=== PATIENT | male | born 1935 | race Caucasian/White ===

== ENCOUNTER 2019-01-20 20:57 | Observation (INO) | payer OTHER ==
[~2019-01-20] VITALS: Ht 172.7 cm; Wt 60.7 kg
[2019-01-21] VITALS (9 sets, daily range): BP systolic 73–175; BP diastolic 68–74; PULSE 72–91; RESP 16–19; Ht 172.7 cm; Wt 60.7 kg
[2019-01-21] MEDS ORDERED: LOVA10TA63 PO (01:49)
[2019-01-21] MEDS ORDERED: SERT-165 PO (01:49)
[2019-01-21] MEDS ORDERED: METO-448 PO (01:49)
[2019-01-21] MEDS ORDERED: NITR0.4T32 SL (01:49)
[2019-01-21] MEDS ORDERED: FAMO20TA18 PO (01:49)
[2019-01-21] MEDS ORDERED: BENZ-6 PO (01:49)
[2019-01-21] MEDS ORDERED: LACT1CAP57 PO (01:49)
[2019-01-21] MEDS ORDERED: ASPI-817 PO (01:49)
[2019-01-21] MEDS ORDERED: FINA5TAB4 PO (01:49)
[2019-01-21] MEDS ORDERED: ALPR0.254 PO (01:49)
[2019-01-21] MEDS: DEXTROSE 5%-0.45% NACL 1,000 ML IV SCH ×2 (02:58→17:25)
[2019-01-21] MEDS ORDERED: ALPRAZOLAM 0.25 MG TAB PO PRN (04:30)
[2019-01-21] MEDS ORDERED: NITROGLYCERIN (SL) 0.4 MG TAB SL PRN ×2 (04:30→04:40)
[2019-01-21] MEDS: PIPER-TAZO 3.375 GM IV (PMX) 100 ML IVPB SCH ×3 (06:12→21:14)
[2019-01-21] MEDS ORDERED: POTASSIUM CHLORIDE (SR) 20 MEQ TAB PO ONE (07:30)
--- NOTE | 2019-01-21 10:25 | HP ---
DATE OF ADMISSION: 01/21/2019 CHIEF COMPLAINT: Persistent cough and generalized weakness. HISTORY OF PRESENT ILLNESS: An 83-year-old male recently discharged from [facility] acute non-STEMI and community-acquired pneumonia. He transferred from [facility] Room after he presented with complaint of persistent cough and generalized weakness. The patient reports that he has been having a dry cough. He denies any fevers or chills. No chest pain. No hem optysis. Initial evaluation in the emergency room included a CAT scan of the chest with pulmonary angiogram. There was no evidence of pulmonary embolus. There was right upper lobe infiltrate suggestive of aspi ration. PAST MEDICAL HISTORY: 1. Coronary artery disease. 2. Recent non-STEMI. 3. Hypertension. 4. Hyperlipidemia. 5. Recent community-acquired pneumonia. 6. Benign prostatic hyperplasia. 7. Chronic depression. MEDICATIONS PRIOR TO ADMISSION: 1. Lovastatin 10 mg daily. 2. Metoprolol 25 mg b.i.d. 3. Nitroglycerin sublingual. 4. Xanax. 5. Aspirin 81 mg daily. 6. Sertraline 100 mg daily. 7. Benzonatate or Tessalon Perles 100 mg t.i.d. 8. Finasteride 5 mg daily. PHYSICAL EXAMINATION: GENERAL: Well-developed, well-nourished, frail, elderly male who is in no apparent distress. VITAL SIGNS: Stable. He is afebrile. HEENT: Extraocular muscles are intact. Pupils are equal and reactive to light bilaterally. Sclerae are anicteric. Oropharynx is clear and moist. NECK: Supple, no JVD, no carotid bruits. LUNGS: Diffuse rhonchi and rales. CARDIAC: Regular rate and rhythm. ABDOMEN: Soft, nontender, nondistended, normoactive bowel sounds. EXTREMITIES: Diffuse muscular atrophy, no clubbing, cyanosis, or edema. LABORATORY DATA: White count of 12.3, hemoglobin 12.2, platelet count is 294,000. BMP is normal exc ept potassium of 3.4. ASSESSMENT: An 83-year-old male with; 1. Right upper lobe pneumonia. 2. Rule out aspiration. 3. Coronary artery disease, status post recent non-STEMI. 4. Hypertension. 5. Hyperlipidemia. 6. Benign prostatic hyperplasia. 7. Chronic debilitation. PLAN: 1. Place in med/surg observation, start IV Zosyn. 2. Respiratory treatment. 3. Speech therapy evaluation. 4. Resume home medications. Dictated By: RIGOBERTO PACHECO/GUILLERMINA Conf#: [id number] DID#: [id number] CC: RIGOBERTO GARAY MD;*EndCC*
[2019-01-21] MEDS: SERTRALINE 100 MG TAB PO SCH (10:47)
[2019-01-21] MEDS: FINASTERIDE 5 MG TAB PO SCH (10:47)
[2019-01-21] MEDS: METOPROLOL 25 MG TAB PO SCH ×2 (10:47→21:15)
[2019-01-21] MEDS: BENZONATATE 100 MG CAP PO SCH ×3 (10:47→21:15)
[2019-01-21] MEDS: FAMOTIDINE 20 MG TAB PO SCH ×2 (10:48→21:14)
[2019-01-21] MEDS: LACTOBACILLUS RHAMNOSUS CAP PO SCH ×2 (10:48→21:14)
[2019-01-21] MEDS: ASPIRIN (EC) 81 MG TAB PO SCH (10:48)
[2019-01-21] MEDS: ALBUTEROL/IPRATROPIUM (NEB) 3 ML AMP HHN SCH ×3 (13:29→20:42)
[2019-01-21] MEDS: ACETAMINOPHEN 325 MG TAB PO PRN (15:04)
[2019-01-21] MEDS ORDERED: PENDING SANTYL ORDER FOR WOUND CARE XX PRN (17:30)
[2019-01-21] MEDS: ATORVASTATIN 10 MG TAB PO SCH (21:14)
[2019-01-22] VITALS (7 sets, daily range): BP systolic 125–186; BP diastolic 62–84; PULSE 72–80; RESP 16–20
[2019-01-22] MEDS: ALBUTEROL/IPRATROPIUM (NEB) 3 ML AMP HHN SCH ×6 (01:19→20:22)
[2019-01-22] MEDS: DEXTROSE 5%-0.45% NACL 1,000 ML IV SCH ×2 (04:30→17:46)
[2019-01-22] MEDS: PIPER-TAZO 3.375 GM IV (PMX) 100 ML IVPB SCH ×3 (06:08→21:48)
[2019-01-22] MEDS: ACETAMINOPHEN 325 MG TAB PO PRN ×2 (06:42→20:04)
[2019-01-22] MEDS ORDERED: PIPE3.374 IVPB (08:50)
--- NOTE | 2019-01-22 08:50 | PDOCDIS ---
Discharge Instructions CONDITION [id number] Patient Condition: [id number] Good HOME CARE INSTRUCTIONS: [id number] Diet Instructions: [id number] y FOLLOW UP/APPOINTMENTS Follow-up Plan pcp 1 week RIGOBERTO GARAY MD Jan 22, 2019 08:50
[2019-01-22] MEDS: SERTRALINE 100 MG TAB PO SCH (08:59)
[2019-01-22] MEDS: FINASTERIDE 5 MG TAB PO SCH (08:59)
[2019-01-22] MEDS: LACTOBACILLUS RHAMNOSUS CAP PO SCH ×2 (08:59→21:04)
[2019-01-22] MEDS: METOPROLOL 25 MG TAB PO SCH ×2 (08:59→18:44)
[2019-01-22] MEDS: ASPIRIN (EC) 81 MG TAB PO SCH (09:00)
[2019-01-22] MEDS: FAMOTIDINE 20 MG TAB PO SCH ×2 (09:00→21:04)
[2019-01-22] MEDS: BENZONATATE 100 MG CAP PO SCH ×3 (09:00→21:04)
--- NOTE | 2019-01-22 15:54 | DS ---
DATE OF ADMISSION: 01/21/2019 DATE OF DISCHARGE: 01/22/2019 DISCHARGE DIAGNOSES: 1. Bilateral upper lobe pneumonia. 2. Possible aspiration. 3. Coronary artery disease, status post recent non-ST elevated myocardial infarction. 4. Hypertension. 5. Hyperlipidemia. 6. Chronic debilitation. 7. Prostatic hyperplasia. HOSPITAL COURSE: An 83-year-old male recently discharged from [facility] following an acute non-STEMI and community-acquired pneumonia, presented with complaint of persistent cough and general ized weakness. CAT scan of the chest showed bilateral upper lobe infiltrates suggestive of chronic a spiration. The patient was started on Zosyn. He was seen in consultation by the speech therapist. The patient was found to have some degree of dysphagia. A full liquid diet was recommended. At this point, the patient is stable for transition to jail facility. He will benefit from physi bernabe therapy. IV Zosyn will be continued for additional 7 days. PLAN: Discharge to jail facility. MEDICATION ON DISCHARGE: 1. Zosyn 3.375 gram IV piggyback q.8h. 2. Xanax 0.25 mg t.i.d. p.r.n. 3. Aspirin 81 mg daily. 4. Tessalon Perles 100 mg t.i.d. 5. Pepcid 20 mg b.i.d. 6. Finasteride 5 mg daily. 7. Lactobacillus 1 tablet b.i.d. 8. Lovastatin 10 mg daily. 9. Metoprolol 25 mg b.i.d. 10. Sertraline 100 mg daily. FOLLOWUP: With PCP in 1 week. Dictated By: RIGOBERTO PACHECO/GUILLERMINA Conf#: [id number] DID#: [id number] CC: RIGOBERTO GARAY MD;*EndCC*
[2019-01-22] MEDS: ATORVASTATIN 10 MG TAB PO SCH (21:04)
[2019-01-23] MEDS: DEXTROSE 5%-0.45% NACL 1,000 ML IV SCH (00:07)
[2019-01-23] MEDS: ALBUTEROL/IPRATROPIUM (NEB) 3 ML AMP HHN SCH ×5 (01:00→16:31)
[2019-01-23 02:18] VITALS: BP 137/63; PULSE 81; RESP 18
[2019-01-23] MEDS: PIPER-TAZO 3.375 GM IV (PMX) 100 ML IVPB SCH ×2 (05:32→13:49)
[2019-01-23 08:20] VITALS: BP 149/71; PULSE 74; RESP 18
[2019-01-23] MEDS: METOPROLOL 25 MG TAB PO SCH (08:45)
[2019-01-23] MEDS: ACETAMINOPHEN 325 MG TAB PO PRN (09:12)
[2019-01-23] MEDS: ASPIRIN (EC) 81 MG TAB PO SCH (09:12)
[2019-01-23] MEDS: SERTRALINE 100 MG TAB PO SCH (09:13)
[2019-01-23] MEDS: FINASTERIDE 5 MG TAB PO SCH (09:13)
[2019-01-23] MEDS: BENZONATATE 100 MG CAP PO SCH ×2 (09:13→12:48)
[2019-01-23] MEDS: LACTOBACILLUS RHAMNOSUS CAP PO SCH (09:13)
[2019-01-23] MEDS: FAMOTIDINE 20 MG TAB PO SCH (09:16)
[2019-01-23] MEDS ORDERED: AMLO-145 PO (09:17)
[2019-01-23] MEDS ORDERED: AMLODIPINE 5 MG TAB PO SCH (09:30)
--- NOTE | 2019-01-23 09:53 | PN ---
Date/Time of Note Date/Time of Note DATE: 01/23/19 TIME: 09:51 Subjective Doing well. No new complaints. Discharge planning to SNF was held the night prior due to poorly controlled blood pressure Objective Vitals Vital Signs Date Temp Pulse Resp B/P (MAP) Pulse Ox O2 O2 Flow FiO2 Time Delivery Rate 01/23/19 3.0 08:43 01/23/19 98.2 74 18 149/71 96 Nasal 08:20 (97) Cannula Intake and Output 01/22/19 01/22/19 01/23/19 1515:00 23:00 07:00 IntakeIntake Total 450 ml 900 ml OutputOutput Total 1100 ml 250 ml 1200 ml BalanceBalance -650 ml 650 ml -1200 ml Lungs with mild rhonchi Cardiac regular rate and rhythm Abdomen soft nontender nondistended normoactive bowel sounds No edema Nonfocal Results Result Diagram: 01/21/1952901/21/19529 Medications Medications Current Medications Piperacillin Sod/ Tazobactam Sod 100 ml @ 200 mls/hr Q8 IVPB Last administered on 01/23/19at 05:32; Admin Dose 200 MLS/HR; Start 01/21/19 at 06:00 Acetaminophen (Tylenol Tab) 650 mg Q4H PRN PO MILD PAIN(1-3)OR ELEVATED TEMP Last administered on 01/23/19 09:12; Admin Dose 650 MG; Start 01/21/19 at 02:00 Alprazolam (Xanax) 0.25 mg TID PRN PO ANXIETY; Start 01/21/19 at 04:30 Aspirin (Halfprin) 81 mg DAILY PO Last administered on 01/23/19at 09:12; Admin Dose 81 MG; Start 01/21/19 at 09:00 Benzonatate (Tessalon) 100 mg TID PO Last administered on 01/23/19 09:13; Admin Dose 100 MG; Start 01/21/19 at 09:00 Famotidine (Pepcid) 20 mg BID PO Last administered on 01/23/19at 09:16; Admin Dose 20 MG; Start 01/21/19 at 09:00 Finasteride (Proscar) 5 mg DAILY PO Last administered on 01/23/19 09:13; Admin Dose 5 MG; Start 01/21/19 at 09:00 Lactobacillus Acidophilus/ Rhamnosus (Culturelle) 1 cap BID PO Last administered on 01/23/19 09:13; Admin Dose 1 CAP; Start 01/21/19 at 09:00 Metoprolol Tartrate (Lopressor) 25 mg BID PO Last administered on 01/23/19 08:45; Admin Dose 25 MG; Start 01/21/19 at 09:00 Sertraline HCl (Zoloft) 100 mg DAILY PO Last administered on 01/23/19 09:13; Admin Dose 100 MG; Start 01/21/19 at 09:00 Atorvastatin Calcium (Lipitor) 10 mg DAILY@21 PO Last administered on 01/22/19 21:04; Admin Dose 10 MG; Start 01/21/19 at 21:00 Nitroglycerin (Nitroglycerin (Sl Tab) 0.4 Mg) 1 tab [id number] PRN SL CHEST PAIN; Start 01/21/19 at 04:40 Albuterol/ Ipratropium (Duoneb) 3 ml Q4H RESP THERAPY HHN Last administered on 01/22/19 20:22; Admin Dose 3 ML; Start 01/21/19 at 13:00 Miscellaneous Information (Pending Santyl Order For Wound Care) This patient diallo... PRN PRN XX WOUND CARE; Start 01/21/19 at 17:30 Amlodipine Besylate (Norvasc) 5 mg DAILY PO Last administered on 01/23/19 09:35; Admin Dose 5 MG; Start 01/23/19 at 09:30 Clonidine (Catapres) 0.1 mg Q6H PRN PO SBP>160; Start 01/23/19 at 09:30 VTE Prophylaxis Risk score (from Nsg)>0 risk: 5 SCD applied (from Nsg): Yes Lines/Catheters IV Catheter Type: Saline Lock Central line still needed: No Castro in Place: No Assessment/Plan Assessment/Plan 83-year-old male with aspiration pneumonia Hypertension Generalized weakness BPH Start Norvasc 5 mg daily Continue Lopressor Clonidine as needed DC IV fluid Discharge planning to SNF today RIGOBERTO GARAY MD Jan 23, 2019 09:53
[2019-01-23 14:38] VITALS: BP 147/67; PULSE 68; RESP 18
== END 2019-01-23 16:30 ==
LOC: INTOOBSV 01-21 00:37 → 6WM 01-21 00:37 → PP2 01-21 13:09
PROVIDERS: ADMIT Internal Medicine; ATTEND Internal Medicine
DX: J18.9 Pneumonia, unspecified organism (principal); I10 Essential (primary) hypertension; E78.5 Hyperlipidemia, unspecified; N40.0 Benign prostatic hyperplasia without lower urinary tract symptoms; R53.81 Other malaise; F32.9 Major depressive disorder, single episode, unspecified; Z79.82 Long term (current) use of aspirin
CPT/HCPCS: 80048; 85025; 92610; 94640; 94664; 97116; 97161; 97530; G0378; J2543; J7042; 99217